=== PATIENT | male | born 1970 | race Caucasian/White ===

== ENCOUNTER 2019-08-20 04:57 | Emergency (ER) | payer BC, OTHER ==
[2019-08-20] MEDS ORDERED: Albuterol/Ipratropium 3.0-0.5 MG/3 ML Neb Soln NEB ONE ×2 (05:53→07:07)
[2019-08-20] MEDS ORDERED: predniSONE 20 MG Tab PO ONE (05:53)
[2019-08-20] MEDS ORDERED: Magnesium Sulfate/Water 2 GM in Premix Bag 1 BAG IV ONE (06:05)
[2019-08-20] MEDS ORDERED: Magnesium Sulfate/Water 50 ML ONE (06:05)
--- NOTE | 2019-08-20 06:29 | EDM.PDOC ---
ED HPI GENERAL MEDICAL PROBLEM - General Chief Complaint: Respiratory Problem Stated Complaint: ASTHMA ATTACK Time Seen by Provider: 08/20/19 06:00 Source of Information: Reports: Patient History Limitations: Reports: No Limitations - History of Present Illness INITIAL COMMENTS - FREE TEXT/NARRATIVE: Patient is a 49-year-old male with a known history of asthma who states that he has been having a dry cough for the last 4 days and worsening dyspnea on exertion. He denies any fever or chills. Patient states he is out of his inhalers. Patient was using his albuterol rescue inhaler just prior to arrival. He states that he is admitted for his asthma every spring. He denies any swelling to his ankles or house and denies that he is more short of breath with lying down. Patient is not a cigarette smoker. He denies any nausea vomiting or diarrhea. He denies any bloody or tarry looking stools. He has no dysuria or hematuria. Duration: Day(s): (Four) Location: Reports: Chest Severity: Moderate Improves with: Reports: None Worsens with: Reports: Movement Associated Symptoms: Reports: Cough, Shortness of Breath. Denies: cough w sputum, Fever/Chills, Nausea/Vomiting - Related Data Allergies Allergy/AdvReac Type Severity Reaction Status Date / Time No Known Allergies Allergy Verified 08/20/19 05:48 Home Meds: Home Meds Albuterol [Ventolin HFA] 2 puff INH ASDIRECTED PRN 08/20/19 [History] Albuterol [Ventolin HFA] 2 puff INH Q6H PRN #1 puff 08/20/19 [Rx] Azithromycin 250 mg PO DAILY #6 tablet 08/20/19 [Rx] predniSONE [Prednisone] 20 mg PO DAILY #5 tablet 08/20/19 [Rx] Past Medical History Respiratory History: Reports: Asthma Social & Family History - Tobacco Use Smoking Status *Q: Never Smoker - Recreational Drug Use Recreational Drug Use: No ED ROS GENERAL - Review of Systems Review Of Systems: Comprehensive ROS is negative, except as noted in HPI. ED EXAM, GENERAL - Physical Exam Exam: See Below Exam Limited By: No Limitations General Appearance: Alert, No Apparent Distress Head: Atraumatic Neck: Normal Inspection, Supple Respiratory/Chest: Respiratory Distress (Mild respiratory distress increased work of breathing.), Decreased Breath Sounds, Wheezing, Accessory Muscle Use Cardiovascular: Regular Rate, Rhythm, No JVD GI/Abdominal: Normal Bowel Sounds, Soft, Non-Tender Back Exam: Normal Inspection Extremities: Normal Inspection, No Pedal Edema Neurological: Alert, Oriented Psychiatric: Normal Affect Skin Exam: Warm, Dry Course - Vital Signs Text/Narrative:: I am concerned because patient is hypoxic with a pulse ox of 93% at rest. I am therefore getting on lactic acid and blood cultures and chest x-ray. He states that he is admitted pretty much every spring secondary to asthma exacerbation. Patient did get 60 of prednisone p.o. and 2 g magnesium IV and a DuoNeb. He is feeling better after the DuoNeb. His only lab back at this time is a lactate of 0.8. Patient's care will be turned over to Dr. Ch change in shift. This patient is doing significantly better and not having any dyspnea on exertion there is a good chance he will need to be admitted to the hospital. Patient is feeling much better with meds. Is getting a second DuoNeb treatment. His labs including his COVID-19 are back and normal. Chest x-ray shows no acute disease. We will desat walking. As long as his O2 sat is above 93 he will be discharged home. I am giving him prescription for prednisone and Zithromax and albuterol inhalers. Last Recorded V/S: Last Vital Signs Temp 36.8 C 08/20/19 05:41 Pulse 95 08/20/19 05:41 Resp 18 08/20/19 05:41 BP 114/79 08/20/19 05:41 Pulse Ox 95 08/20/19 05:41 - Orders/Labs/Meds Orders: Active Orders 24 hr Category Date Time Status RT Aerosol Therapy [RC] ASDIRECTED Care 08/20/19 05:54 Active RT Aerosol Therapy [RC] ASDIRECTED Care 08/20/19 07:07 Active Chest 2V [CR] Stat Exams 08/20/19 06:02 Taken CULTURE BLOOD [BC] Stat Lab 08/20/19 06:15 Received CULTURE BLOOD [BC] Stat Lab 08/20/19 06:22 Received Blood Culture x2 Reflex Set [OM.PC] Stat Oth 08/20/19 06:03 Ordered Labs: Laboratory Tests 08/20/19 08/20/19 08/20/19 Range/Units 06:15 06:15 06:15 WBC 7.11 (4.0-11.0) K/uL RBC 4.25 L (4.50-5.90) M/uL Hgb 13.3 (13.0-17.0) g/dL Hct 39.8 (38.0-50.0) % MCV 93.6 (80.0-98.0) fL MCH 31.3 (27.0-32.0) pg MCHC 33.4 (31.0-37.0) g/dL RDW Std Deviation 45.4 (28.0-62.0) fl RDW Coeff of Eloisa 13 (11.0-15.0) % Plt Count 118 L (150-400) K/uL MPV 12.60 H (7.40-12.00) fL Neut % (Auto) 61.4 (48.0-80.0) % Lymph % (Auto) 20.3 (16.0-40.0) % Gentry % (Auto) 10.1 (0.0-15.0) % Eos % (Auto) 7.6 H (0.0-7.0) % Baso % (Auto) 0.6 (0.0-1.5) % Neut # (Auto) 4.4 (1.4-5.7) K/uL Lymph # (Auto) 1.4 (0.6-2.4) K/uL Gentry # (Auto) 0.7 (0.0-0.8) K/uL Eos # (Auto) 0.5 (0.0-0.7) K/uL Baso # (Auto) 0.0 (0.0-0.1) K/uL Nucleated RBC % 0.0 /100WBC Nucleated RBCs # 0 K/uL Lactate 0.8 (0.20-2.00) mmol/L Sodium 138 (136-148) mmol/L Potassium 3.7 (3.5-5.1) mmol/L Chloride 105 (98-107) mmol/L Carbon Dioxide 24.1 (21.0-32.0) mmol/L BUN 16 (7.0-18.0) mg/dL Creatinine 0.8 (0.8-1.3) mg/dL Est Cr Clr Drug Dosing 129.01 mL/min Estimated GFR (MDRD) > 60.0 ml/min Glucose 93 (74-106) mg/dL Calcium 8.4 L (8.5-10.1) mg/dL Total Bilirubin 0.5 (0.2-1.0) mg/dL AST 60 H (15-37) IU/L ALT 45 (14-63) IU/L Alkaline Phosphatase 72 (46-116) U/L Total Protein 6.5 (6.4-8.2) g/dL Albumin 3.7 (3.4-5.0) g/dL Globulin 2.8 (2.6-4.0) g/dL Albumin/Globulin Ratio 1.3 (0.9-1.6) SARS-CoV-2 RNA (RT-PCR) (NEGATIVE) 08/20/19 Range/Units 06:15 WBC (4.0-11.0) K/uL RBC (4.50-5.90) M/uL Hgb (13.0-17.0) g/dL Hct (38.0-50.0) % MCV (80.0-98.0) fL MCH (27.0-32.0) pg MCHC (31.0-37.0) g/dL RDW Std Deviation (28.0-62.0) fl RDW Coeff of Eloisa (11.0-15.0) % Plt Count (150-400) K/uL MPV (7.40-12.00) fL Neut % (Auto) (48.0-80.0) % Lymph % (Auto) (16.0-40.0) % Gentry % (Auto) (0.0-15.0) % Eos % (Auto) (0.0-7.0) % Baso % (Auto) (0.0-1.5) % Neut # (Auto) (1.4-5.7) K/uL Lymph # (Auto) (0.6-2.4) K/uL Gentry # (Auto) (0.0-0.8) K/uL Eos # (Auto) (0.0-0.7) K/uL Baso # (Auto) (0.0-0.1) K/uL Nucleated RBC % /100WBC Nucleated RBCs # K/uL Lactate (0.20-2.00) mmol/L Sodium (136-148) mmol/L Potassium (3.5-5.1) mmol/L Chloride (98-107) mmol/L Carbon Dioxide (21.0-32.0) mmol/L BUN (7.0-18.0) mg/dL Creatinine (0.8-1.3) mg/dL Est Cr Clr Drug Dosing mL/min Estimated GFR (MDRD) ml/min Glucose (74-106) mg/dL Calcium (8.5-10.1) mg/dL Total Bilirubin (0.2-1.0) mg/dL AST (15-37) IU/L ALT (14-63) IU/L Alkaline Phosphatase (46-116) U/L Total Protein (6.4-8.2) g/dL Albumin (3.4-5.0) g/dL Globulin (2.6-4.0) g/dL Albumin/Globulin Ratio (0.9-1.6) SARS-CoV-2 RNA (RT-PCR) NEGATIVE (NEGATIVE) Meds: Medications Discontinued Medications Generic Name Dose Route Start Last Admin Trade Name Freq PRN Reason Stop Dose Admin Albuterol/Ipratropium 3 ml 08/20/19 05:53 08/20/19 06:33 Duoneb 3.0-0.5 Mg/3 Ml NEB 08/20/19 05:54 3 ml ONETIME ONE Administration Albuterol/Ipratropium 3 ml 08/20/19 07:07 Duoneb 3.0-0.5 Mg/3 Ml NEB 08/20/19 07:08 ONETIME ONE Magnesium Sulfate 2 gm/ Premix 50 mls @ 50 mls/hr 08/20/19 06:05 08/20/19 06: 34 IV 08/20/19 07:04 50 mls/hr ONETIME ONE Administration Magnesium Sulfate Confirm 08/20/19 06:05 08/20/19 06:34 Magnesium Sulfate In Water Premix Administered 08/20/19 06:06 Not Given Dose 50 mls @ as directed .ROUTE .STK-MED ONE Prednisone 60 mg 08/20/19 05:53 08/20/19 06:33 Prednisone PO 08/20/19 05:54 60 mg ONETIME ONE Administration Departure - Departure Time of Disposition: 07:15 Disposition: Home, Self-Care 01 Condition: Fair Clinical Impression: Acute asthma, Hypoxia - Discharge Information Instructions: Asthma, Adult Referrals: PCP,None [Primary Care Provider] - Forms: ED Department Discharge Additional Instructions: Medicines as prescribed. Return to ER symptoms are worse. Follow-up with PCP if symptoms continue. Care Plan Goals: The following information is given to patients seen in the emergency department who are being discharged to home. This information is to outline your options for follow-up care. We provide all patients seen in our emergency department with a follow-up referral. The need for follow-up, as well as the timing and circumstances, are variable depending upon the specifics of your emergency department visit. If you don't have a primary care physician on staff, we will provide you with a referral. We always advise you to contact your personal physician following an emergency department visit to inform them of the circumstance of the visit and for follow-up with them and/or the need for any referrals to a consulting specialist. The emergency department will also refer you to a specialist when appropriate. This referral assures that you have the opportunity for follow-up care with a specialist. All of these measure are taken in an effort to provide you with optimal care, which includes your follow-up. Under all circumstances we always encourage you to contact your private physician who remains a resource for coordinating your care. When calling for follow-up care, please make the office aware that this follow-up is from your recent emergency room visit. If for any reason you are refused follow-up, please contact the Emergency Department at and asked to speak to the emergency department charge nurse. Sepsis Event Note - Evaluation Sepsis Screening Result: No Definite Risk - Focused Exam Vital Signs: Vital Signs Temp Pulse Resp BP Pulse Ox 08/20/19 05:41 36.8 C 95 18 114/79 95 Date Exam was Performed: 08/20/19 Time Exam was Performed: 07:12 - My Orders Last 24 Hours: My Active Orders 08/20/19 05:54 RT Aerosol Therapy [RC] ASDIRECTED 08/20/19 06:02 Chest 2V [CR] Stat 08/20/19 06:03 Blood Culture x2 Reflex Set [OM.PC] Stat 08/20/19 06:15 CULTURE BLOOD [BC] Stat 08/20/19 06:22 CULTURE BLOOD [BC] Stat 08/20/19 07:07 RT Aerosol Therapy [RC] ASDIRECTED - Assessment/Plan Last 24 Hours: My Active Orders 08/20/19 05:54 RT Aerosol Therapy [RC] ASDIRECTED 08/20/19 06:02 Chest 2V [CR] Stat 08/20/19 06:03 Blood Culture x2 Reflex Set [OM.PC] Stat 08/20/19 06:15 CULTURE BLOOD [BC] Stat 08/20/19 06:22 CULTURE BLOOD [BC] Stat 08/20/19 07:07 RT Aerosol Therapy [RC] ASDIRECTED
[2019-08-20 06:53] LABS: BLOOD UREA NITROGEN,BUN 16 mg/dL (7.0-18.0); CARBON DIOXIDE,CO2 24.1 mmol/L (21.0-32.0); CHLORIDE,CL 105 mmol/L (98-107); GLUCOSE RANDOM 93 mg/dL (74-106); POTASSIUM,K 3.7 mmol/L (3.5-5.1); SODIUM,NA 138 mmol/L (136-148)
--- NOTE | 2019-08-20 07:22 | CR ---
Indication: Cough with hypoxia. Technique: Chest 2 views Comparison: None Findings: Cardiomediastinal silhouette is unremarkable. No focal lung consolidation, pleural effusion or pneumothorax. No acute osseous abnormality. Impression: No acute cardiopulmonary abnormality. Dictated by Renny Pinto MD @ Aug 20 2019 7:20AM Signed by Dr. Renny Pinto @ Aug 20 2019 7:21AM
[2019-08-20] MEDS ORDERED: Albuterol 0.083% 2.5 MG/3 ML Neb Soln NEB ONE (07:59)
== END 2019-08-20 08:30 | disposition home or self-care (01) ==
LOC: MW.ED 04:57
DX: J45.909 Unspecified asthma, uncomplicated (principal); R09.02 Hypoxemia; Z79.899 Other long term (current) drug therapy; Z20.828 Contact with and (suspected) exposure to other viral communicable diseases
CPT/HCPCS: 36415; 71046; 80053; 83605; 85025; 87040; 87635; 96365; 99285; A9270; J3475; 99283; J7620-GY; U0002